=== PATIENT | female | born 1985 | race American Indian/Alaskan Native ===

== ENCOUNTER 2017-11-08 12:46 | Outpatient (CLI) | payer MEDICAID ==
[2017-11-08 13:07] VITALS: BP 128/70
[2017-11-08 13:38] LABS: Bilirubin,Urine NEG (Negative); Blood,Urine NEG (Negative); Color,Urine Yellow (Yellow); Protein,Urine <15 mg/dL mg/dL (Negative); Urobilinogen,Urine < 2.0 mg/dL (<2.0)
[2017-11-08] MEDS ORDERED: BRETHINE SUB-Q PRN (14:01)
== END 2017-11-08 15:12 | disposition home or self-care (01) ==
LOC: TRG 12:46
PROVIDERS: ATTEND Obstetrics & Gynecology
DX: O47.03 False labor before 37 completed weeks of gestation, third trimester (principal); Z3A.32 32 weeks gestation of pregnancy
CPT/HCPCS: 59025; 81001; 96372; J3105

== ENCOUNTER 2017-12-22 15:46 | Outpatient (CLI) | payer MEDICAID ==
[2017-12-22 16:00] VITALS: BP 123/70
== END 2017-12-22 18:50 | disposition home or self-care (01) ==
LOC: TRG 15:46 → LD 15:47 → TRG 15:51
PROVIDERS: ATTEND Obstetrics & Gynecology
DX: O47.1 False labor at or after 37 completed weeks of gestation (principal); Z3A.39 39 weeks gestation of pregnancy